=== PATIENT | male | born 1955 | race Caucasian/White ===

== ENCOUNTER → 2018-07-16 | Outpatient (CLI) | payer MEDICARE ==
[~2018-07-16] MED LIST: ANDROGEL TP; ATOR20TA37 PO; CARI350T14; CARI350T14 PO; DOXY100T PO; DOXY20TA5 PO; HYDR25SU4 PR; HYDR30CR7 PR; MEPE50TA4 PO; MINO100C PO; MULT1TAB60 PO; OLME20TA17 PO; OMEP20TA62 PO; [UNRECOGNIZED DRUG - OTHER] PR
[2018-07-16 13:51] LABS: BASOPHILS # (AUTO) 0.06 x10^3/uL (0-0.1); BASOPHILS % (AUTO) 1 % (0-1); EOSINOPHILS # (AUTO) 0.13 x10^3/uL (0-0.4); EOSINOPHILS % (AUTO) 1 % (1-7); LYMPHOCYTES # (AUTO) 1.56 x10^3/uL (1-3.4); LYMPHOCYTES % (AUTO) 16 % (22-44); MD NO; MEAN CORPUSCULAR HEMOGLOBIN 30.8 pg (27.5-34.5); MEAN CORPUSCULAR HGB CONC 33.8 g/dL (33.2-36.2); MEAN PLATELET VOLUME 9.4 fL (7.4-10.4); MONOCYTES # (AUTO) 0.89 x10^3/uL (0.2-0.8); MONOCYTES % (AUTO) 9 % (2-9); NEUTROPHILS # (AUTO) 7.37 x10^3/uL (1.8-6.8); NEUTROPHILS % (AUTO) 74 % (42-75); PLATELET COUNT 216 x10^3/uL (130-400); RED BLOOD COUNT 5.45 x10^6/uL (4.38-5.82); RED CELL DISTRIBUTION WIDTH 13.7 % (9.4-14.8)
[2018-07-16 13:56] LABS: ALBUMIN 4.1 g/dL (3.4-5.0); ANION GAP 6 mmol/L (5-15); CHLORIDE 110 mmol/L (98-107); CHOLESTEROL, TOTAL 127 mg/dL (140-239); CREATININE 0.97 mg/dL (0.7-1.3)
[2018-07-16 14:09] LABS: % IRON SATURATION 29 % (20-55); ALANINE AMINOTRANSFERASE 50 U/L (12-78); ALKALINE PHOSPHATASE 126 U/L (45-117); BILIRUBIN,TOTAL 0.4 mg/dL (0.2-1.0); CHOL/HDL RATIO 3.3; HDL CHOL % 30 % (26-37); HDL CHOLESTEROL (DIRECT) 38 mg/dL (40-60); IRON LEVEL 103 mcg/dL (65-175); LDL CHOLESTEROL,CALCULATED 63 mg/dL (54-169); LDL/HDL RATIO 1.7 (0.5-3.0); PREALBUMIN 28.6 mg/dL (20.0-40.0); TOTAL IRON BINDING CAPACITY 356 mcg/dL (250-450); TOTAL PROTEIN 7.7 g/dL (6.4-8.2); TRANSFERRIN 258 mg/dL (200-360); TRIGLYCERIDES 132 mg/dL (50-200); VLDL CHOLESTEROL 26 mg/dL (0-25)
[2018-07-16 14:12] LABS: FOLATE LEVEL > 20.0 ng/mL (3.1-17.5)
== END | disposition home or self-care (01) ==
LOC: STAR 12:30
PROVIDERS: ATTEND Thoracic Surgery (Cardiothoracic Vascular Surgery)
DX: Z01.818 Encounter for other preprocedural examination (principal); I10 Essential (primary) hypertension; M84.48XA Pathological fracture, other site, initial encounter for fracture; R11.10 Vomiting, unspecified; E66.01 Morbid (severe) obesity due to excess calories; Z85.9 Personal history of malignant neoplasm, unspecified; Z79.899 Other long term (current) drug therapy; Z88.8 Allergy status to other drugs, medicaments and biological substances
CPT/HCPCS: 36415; 71046; 80053; 80061; 82306; 82728; 82746; 83540; 83550; 83970; 84134; 84425; 84466; 85025; 93005